=== PATIENT | female | born 1955 | race Caucasian/White ===

== ENCOUNTER → 2018-07-10 | Day surgery (SDC) | payer BC ==
[2018-07-09 11:29] LABS: BASOPHILS # (AUTO) 0.1 (0.0-0.1); BASOPHILS % 0.9 % (0.0-1.0); EOSINOPHILS # (AUTO) 0.3 (0.0-0.4); EOSINOPHILS % 4.5 % (0.0-6.0); HEMATOCRIT 39.2 % (34.2-44.1); HEMOGLOBIN 13.1 g/dL (12.0-16.0); LYMPHOCYTES # (AUTO) 1.5 (1.0-3.2); LYMPHOCYTES % 26.8 % (18.0-39.1); MEAN CORPUSCULAR HEMOGLOBIN 30.6 pg (28-32); MEAN CORPUSCULAR HGB CONC 33.4 g/dL (31-35); MEAN CORPUSCULAR VOLUME 91.6 fL (81-99); MONOCYTES # (AUTO) 0.4 (0.2-0.8); NEUTROPHILS # (AUTO) 3.5 (2.1-6.9); NEUTROPHILS % 60.5 % (38.7-80.0); PLATELET COUNT 171 x10e3/uL (140-360); RED BLOOD COUNT 4.28 x10e6/uL (3.6-5.1); RED CELL DISTRIBUTION WIDTH 13.1 % (11.7-14.4)
[2018-07-09 11:47] LABS: ALANINE AMINOTRANSFERASE 26 IU/L (0-55); ALBUMIN/GLOBULIN RATIO 1.1 (0.8-2.0); ALKALINE PHOSPHATASE 72 IU/L (40-150); ANION GAP 13.7 mmol/L (8-16); BLOOD UREA NITROGEN 12 mg/dL (7-26); BUN/CREATININE RATIO 13 (6-25); CALCIUM 9.7 mg/dL (8.4-10.2); CARBON DIOXIDE 28 mmol/L (22-29); CHLORIDE 103 mmol/L (98-107); CREATININE, SERUM 0.93 mg/dL (0.57-1.11); EST GLOMERULAR FILTRATION RATE > 60 ML/MIN (60-); GLUCOSE 89 mg/dL (74-118); POTASSIUM 4.7 mmol/L (3.5-5.1); SODIUM 140 mmol/L (136-145)
[2018-07-09 12:53] LABS: INR 0.85; PROTHROMBIN TIME 12.1 seconds (11.9-14.5)
[2018-07-09 12:54] LABS: PARTIAL THROMBOPLASTIN TIME 26.9 seconds (23.8-35.5)
[~2018-07-10] MED LIST: ACETAMINOPHEN 1000 MG/100 ML IV ONE; ACIDOPHILUS1 EAC1 PO; ARNICA120 ML PO; BACITRACIN 50,000 UNIT VIAL ONE; BUPIVACAINE 0.25% 30ML SDV INJ ONE; BUPIVACAINE 0.5%/EPI 30 ML SDV INJ ONE; CALCIUM PO; CEFAZOLIN SOD 1 GM/NS 50ML 50 ML IV ONE; CO Q-10400 MG PO; DEXAMETHASONE SOD PHOS INJ 4 MG/ML VIAL ONE; EPINEPHRINE HCL 1:1000 1ML 1 MG/ML AMP ONE; FENTANYL CITRATE/PF 100MCG/2 ML INJ ONE; HYDROCODONE/APAP 10MG-325MG TAB ONE; HYDROMORPHONE 2MG/ML 2 MG/ML ML ONE; LIDOCAINE HCL 1% 30ML-PF VIAL ONE; LIDOCAINE HCL 2% LOCAL INJ 5 ML SDV VIAL INJ ONE; MAGNESIUM OXID400 MG PO; MEPERIDINE HCL INJ 25 MG/ML VIAL ONE; METOCLOPRAMIDE HCL 10 MG/2ML VIAL ONE; MIDAZOLAM HCL 2 MG/2 ML VIAL ONE; OMEGA-31000 MG PO; ONDANSETRON HCL INJ 2MG/ML 2ML 2 MG/ML VIAL ONE; PROMETHAZINE HCL (IM) 25 MG/ML VIAL ONE; PROPOFOL IV EMULSION 10 MG/ML 20 ML VIAL ONE; ROCURONIUM BROMIDE 10 MG/ML 5ML VIAL ONE; SEVOFLURANE INHAL SOLN 250 ML PEN BTL ONE; TURMERIC1 GM PO; VIT B PO; VIT C PO; VIT D PO; VIT E PO; ZINC SULFATE220 M1 PO; [UNRECOGNIZED DRUG - OTHER] PO
--- OUTSIDE RECORDS SUMMARY | 2018-07-10 06:15 | XMS REPORT | Encounter Summary ---
Author Organization Unknown Address [address] [place] [address] Phone [phone] Reason for Visit Medical Complaint Instructions 1. Acute sinusitis amoxicillin 875 mg tablet 2. Pharyngitis rapid flu (A+B) rapid strep group A, throat 3. Acute otitis media 4. Overweight 5. Immunization due Discussion Note Follow up with PCP if symptoms continue or worsen Patient educational handouts: No information available. Plan of Care Reminders Provider Appointments None recorded. Lab Rapid Flu (A+B) 01/26/2018 [facility] Rapid Strep Group a, Throat 01/26/2018 [facility] Referral None recorded. Procedures None recorded. Surgeries None recorded. Imaging None recorded. Medications Name Start Date amoxicillin 875 mg tablet Take 1 tablet every 12 hours by oral route for 10 days. anastrozole 1 mg tablet Medications Administered None recorded. Vitals Height Weight BMI Blood Pressure 5 ft 5 in 189 lbs 31.5 kg/m2 118/74 mm[Hg] Lab Results Date Name Specimen Result Interpretation Description Value Range Status Address Rapid Strep Group a, Throat Result negative [facility]: [address] [place] [address] Swab Location Right tonsillar pillars [facility]: [address] [place] [address] Rapid Flu (A+B) Influenza a negative [facility]: [address] [place] [address] Influenza B negative [facility]: [address] [place] [address] Allergies Code Code System Name Reaction Severity Status Onset NKDA Problems None recorded. Procedures Date Name Performed by Information not available Tonsillectomy Information not available Vaccine List Vaccine Type Tdap 12/30/2011 Social History Smoking Status Smoker, Current Status Unknown Past Encounters 01/26/2018 Acute Sinusitis; Pharyngitis; Acute Otitis Media; Overweight; Immunization Due Mitesh Crow PA-C: [place] [address], Ph. History of Present Illness Spudn-Sdgggsmggi-Wnkhajm Reported By: Patient HPI: Location: head/sinuses, throat. Quality: productive cough, sore throat, colored phlegm, nasal/sinus congestion. Duration: 6days. Severity: moderate. Onset/Timing: gradual. Context: no foreign travel, non-smoker, sick contact. Modifying factors: OTC medication. Associated Symptoms: no shortness of breath, no wheezing, no change in number of pillows needed to sleep at night, no sweats, no significant weight gain, no significant weight loss, no vomiting, no diarrhea, no rash, no nausea, no fever, no muscle aches, no headache, green sputum, yellow sputum, morning cough, sore throat Review of Systems:ROS as noted in the HPI Review of Systems Basic Reported By: Patient Physical Exam Adult Basic Reported By: Patient Constitutional: General Appearance: healthy-appearing, well-nourished, well-developed, overweight. Level of Distress: NAD. Ambulation: ambulating normally Psychiatric: Mental Status: active and alert. Orientation: to time, to place, to person Eyes: Lids and Conjunctivae: non-injected, no discharge, no pallor. EOM: EOMI. Lens: clear. Sclerae: non-icteric. Vision: acuity grossly intact Aiz-Gtap-Ywmlj-Throat: Ears: no lesions on external ear, no outer ear tenderness, EACs clear, TM erythematous, TM bulging, middle ear fluid. Hearing: no hearing loss. Nose: no lesions on external nose, no septal deviation, nasal passages clear, nares non-patent, sinus tenderness, nasal discharge, nasal discharge--purulent, post nasal drip. Lips, Teeth, and Gums: no mouth or lip ulcers, no bleeding gums, normal dentition. Oropharynx: moist mucous membranes, no erythema, no exudates, tonsils not enlarged Neck: Neck: supple, trachea midline, no masses, FROM. Lymph Nodes: no cervical LAD. Thyroid: no enlargement, non-tender, no nodules Lungs: Respiratory effort: no dyspnea, no tachypnea, no use of accessory muscles, no intercostal retractions. Auscultation: breath sounds normal Cardiovascular: Heart Auscultation: RRR, no murmurs Musculoskeletal:: Joints, Bones, and Muscles: normal movement of all extremities Neurologic: Gait and Station: normal gait, normal station. Cranial Nerves: grossly intact. Sensation: grossly intact Skin: Inspection and palpation: no rash, no lesions Back: Thoracolumbar Appearance: normal curvature
--- OUTSIDE RECORDS SUMMARY | 2018-07-10 06:15 | XMS REPORT | Encounter Summary ---
Author Organization Unknown Address [address] [place] [address] Phone [phone] Reason for Visit Medical Complaint Instructions 1. [...] Group a, Throat Result negative [facility]: [address] [place] [address] Swab Location Right tonsillar pillars [facility]: [address] [place] [address] Rapid Flu (A+B) Influenza a negative [facility]: [address] [place] [address] Influenza B negative [facility]: [address] [place] [address] Allergies Code Code System Name Reaction Severity Status Onset NKDA Problems None recorded. Procedures Date Name Performed by Information not available Tonsillectomy Information not available Vaccine List Vaccine Type Tdap 12/30/2011 Social History Smoking Status Smoker, Current Status Unknown Past Encounters 01/26/2018 Acute Sinusitis; Pharyngitis; Acute Otitis Media; Overweight; Immunization Due Mitesh Crow PA-C: [place] [address], Ph. History of Present Illness Vcbui-Hqtxntbgat-Oifafnh Reported By: Patient HPI: Location: head/sinuses, throat. [...] clear. Sclerae: non-icteric. Vision: acuity grossly intact Zmn-Lozj-Gxmoe-Throat: Ears: no lesions on external ear, no [...]
--- OUTSIDE RECORDS SUMMARY | 2018-07-10 06:15 | XMS REPORT | Encounter Summary ---
Author Organization Unknown Address [address] [place] [address] Phone [phone] Reason for Visit Medical Complaint Instructions 1. Acute urinary tract infection urinalysis, dipstick culture, urine Bactrim DS 800 mg-160 mg tablet Discussion Note Pt is aaox3 and in NAD; verbalizes understanding of all instructions and has no further questions at this time Patient educational handouts: No information available. Plan of Care Patient Instructions Urinary Tract Infection Your symptoms and/or tests indicate a Urinary Tract Infection, a bacterial infection of the bladder. Take antibiotics only as prescribed. Once starting an antibiotic course, finish the entire course unless otherwise indicated by a medical professional. If you develop a reaction to the medication, including rash, hives, swelling of throat, difficulty breathing, stop immediately and seek medical care. Take a daily probiotic or eat a daily yogurt Drink plenty of non-caffeinated drinks. To prevent Urinary Tract Infections, wipe front to back if you are female, urinate after intercourse if you are active, drink plenty of fluids, urinate after bathing or swimming, do not keep wet clothing on for extended periods of time, and urinate when you have the urge (do not hold urine). If a urine culture was collected, you will receive a phone call with positive results and results without portal access. Normal results will be published to the portal at [employer] If symptoms continue or do not improve, follow up with your primary care provider. Seek care immediately with your primary care provider, an urgent care, or an emergency room if symptoms worsen or you develop fever above 101, vomiting, back pain, blood in the urine, abdominal pain, dizziness, difficulty or inability to urinate. If you have any need to contact [facility], including questions or concerns, please contact or Reminders Provider Appointments None recorded. Lab Urinalysis, Dipstick 06/13/2018 [facility] Culture, Urine 06/13/2018 [facility] Referral None recorded. Procedures None recorded. Surgeries None recorded. Imaging None recorded. Medications Name Start Date anastrozole 1 mg tablet Bactrim DS 800 mg-160 mg tablet Take 1 tablet every 12 hours by oral route for 7 days. Medications Administered None recorded. Vitals Height Weight BMI Blood Pressure 5 ft 5 in 208 lbs 34.6 kg/m2 108/62 mm[Hg] Lab Results Date Name Specimen Result Interpretation Description Value Range Status Address 06/13/2018 Urinalysis, Dipstick Color : Straw [facility]: [address] [place] [address] Clarity : Cloudy [facility]: [address] [place] [address] Leukocytes : Large [facility]: [address] [place] [address] Nitrites : Negative [facility]: [address] [place] [address] Urobilinogen : 1 [facility]: [address] [place] [address] Protein : 100 [facility]: [address] [place] [address] Ph : 5.0 [facility]: [address] [place] [address] Blood : Negative [facility]: [address] [place] [address] Specific [place] : 1.020 [facility]: [address] [place] [address] Ketones : Negative [facility]: [address] [place] [address] Bilirubin : Negative [facility]: [address] [place] [address] Glucose Negative [facility]: [address] [place] [address] Comments : taken otc urinex [facility]: [address] [place] [address] Allergies Code Code System Name Reaction Severity Status Onset NKDA Problems None recorded. Procedures Date Name Performed by Information not available Tonsillectomy Information not available Vaccine List Vaccine Type Tdap 12/30/2011 Social History Smoking Status Smoker, Current Status Unknown Past Encounters 06/13/2018 Acute Urinary Tract Infection [facility]-C: [address] [address], Ph. History of Present Illness Iykntj-JSG-Hbptwic Reported By: Patient HPI: Location: urethra. Quality: pressure, burning. Severity: worsening. Duration: started 5 days. Context: no known exposure to STD, no prior history of STDs. Modifying factors nothing gives relief; uricalm max. Associated Symptoms: no fever/chills, no flank pain, no jaundice, no blood in the urine, no pain during urination, no vaginal discharge, no blisters on genitals, no rash on genitals, no muscle aches, no headache, burning sensation during urination, urgency, urinary frequency, feeling of incomplete emptying of bladder Review of Systems:ROS as noted in the HPI Review of Systems Basic Reported By: Patient Physical Exam Adult Basic, Adult Female Complete Reported By: Patient Constitutional: General Appearance: healthy-appearing, well-nourished, well-developed. Level of Distress: NAD. Ambulation: ambulating normally Psychiatric: Mental Status: active and alert Neck: Neck: supple. Lymph Nodes: no cervical LAD, no supraclavicular LAD Lungs: Respiratory effort: no dyspnea, no tachypnea, no use of accessory muscles, no intercostal retractions. Auscultation: breath sounds normal Cardiovascular: Heart Auscultation: RRR, no murmurs Musculoskeletal:: Motor Strength and Tone: normal motor strength, normal tone Skin: Inspection and palpation: no rash, no lesions Abdomen: Bowel Sounds: normal. Inspection and Palpation: soft, no rebound tenderness, no masses, no CVA tenderness, LLQ tenderness, RLQ tenderness
--- OUTSIDE RECORDS SUMMARY | 2018-07-10 06:15 | XMS REPORT | Continuity of Care Document ---
Author Author [facility] Interface Address Unknown Phone Unavailable Problems Problem Status Onset Date Classification Date Reported Comments Source Acute urinary tract infection 06/13/2018 Diagnosis 06/13/2018 [facility] Immunization due 01/26/2018 Diagnosis 01/26/2018 [facility] Overweight 01/26/2018 Diagnosis 01/26/2018 [facility] Acute otitis media 01/26/2018 Diagnosis 01/26/2018 [facility] Pharyngitis 01/26/2018 Diagnosis 01/26/2018 [facility] Acute sinusitis 01/26/2018 Diagnosis 01/26/2018 [facility] Medications Medication Details Route Status Patient Instructions Ordering Provider Order Date Source Amoxicillin 875 MG Oral Tablet amoxicillin 875 mg tablet Take 1 tablet every 12 hours by oral route for 10 days. Active [facility] anastrozole 1 MG Oral Tablet anastrozole 1 mg tablet Active [facility] Sulfamethoxazole 800 MG / Trimethoprim 160 MG Oral Tablet [Bactrim] Bactrim DS 800 mg-160 mg tablet Take 1 tablet every 12 hours by oral route for 7 days. Active [facility] Allergies, Adverse Reactions, Alerts Substance Category Reaction Severity Reaction type Status Date Reported Comments Source Immunizations Immunization Date Given Site Status Last Updated Comments Source Tdap 12/30/2011 completed [facility] Results Order Name Results Value Reference Range Date Interpretation Comments Source Urinalysis macro (dipstick) panel - Urine COLOR : Straw 06/13/2018 [facility] Urinalysis macro (dipstick) panel - Urine CLARITY : Cloudy 06/13/2018 [facility] Urinalysis macro (dipstick) panel - Urine LEUKOCYTES : Large 06/13/2018 [facility] Urinalysis macro (dipstick) panel - Urine NITRITES : Negative 06/13/2018 [facility] Urinalysis macro (dipstick) panel - Urine UROBILINOGEN : 1 06/13/2018 [facility] Urinalysis macro (dipstick) panel - Urine PROTEIN : 100 06/13/2018 [facility] Urinalysis macro (dipstick) panel - Urine pH : 5.0 06/13/2018 [facility] Urinalysis macro (dipstick) panel - Urine BLOOD : Negative 06/13/2018 [facility] Urinalysis macro (dipstick) panel - Urine SPECIFIC GRAVITY : 1.020 06/13/2018 [facility] Urinalysis macro (dipstick) panel - Urine KETONES : Negative 06/13/2018 [facility] Urinalysis macro (dipstick) panel - Urine BILIRUBIN : Negative 06/13/2018 [facility] Urinalysis macro (dipstick) panel - Urine GLUCOSE Negative 06/13/2018 [facility] Urinalysis macro (dipstick) panel - Urine COMMENTS : taken otc urinex 06/13/2018 [facility] RESULT negative 01/26/2018 [facility] SWAB LOCATION Right tonsillar pillars 01/26/2018 [facility] Influenza A negative 01/26/2018 [facility] Influenza B negative 01/26/2018 [facility] Vital Signs Vital Sign Value Date Comments Source Diastolic (mm Hg) 62 06/13/2018 [facility] Height 65 06/13/2018 [facility] Systolic (mm Hg) 108 06/13/2018 [facility] Weight 208 06/13/2018 [facility] Diastolic (mm Hg) 74 01/26/2018 [facility] Height 65 01/26/2018 [facility] Systolic (mm Hg) 118 01/26/2018 [facility] Weight 189 01/26/2018 [facility] Encounters Location Location Details Encounter Type Encounter Number Reason For Visit Attending Provider ADM Date DC Date Status Source [place] - [facility] - [id number] MITRA MunozC: [address] [place] [address], Ph. [id number] Sallye Scogin 01/26/2018 [facility] [place] - [facility] - [id number] MITRA MunozC: [address] [place] [address], Ph. [id number] Sallye Scogin 01/26/2018 [facility] [place] - [facility] - [id number] BARI Brewster-C: [address], [place] [address], Ph. [id number] Susanne Castro 06/13/2018 [facility] Procedures Procedure Code Date Perfomer Comments Source [facility] Tonsillectomy [facility]
--- NOTE | 2018-07-10 07:10 | NUR ---
SPIRITUAL CARE - Pre-Surgery Assessment: Pt in bed. Pt's at bedside. Pt reported supportive attention from family and friends. Intervention: I provided pastoral presence, hospitality, and sympathetic listening. I acquainted pt with availability of credit risk officer while hospitalized. Outcome: Pt expressed appreciation for visit. No need for follow up indicated at this time. RODERICK Vegalain Spiritual Care Department O: [phone] Pager: [phone] ([phone] calling from)
[2018-07-10 17:30] VITALS: BP 137/90
--- NOTE | 2018-08-15 20:59 | Operative Report ---
DATE OF PROCEDURE: 07/10/2018 SURGEON: Tracy Rushing MD PREOPERATIVE DIAGNOSES: 1. History of left breast cancer. 2. Acquired deformity of left breast. 3. Right breast ptosis. 4. Excess lower abdominal skin and diastasis recti. POSTOPERATIVE DIAGNOSES: 1. History of left breast cancer. 2. Acquired deformity of left breast. 3. Right breast ptosis. 4. Excess lower abdominal skin and diastasis recti. PROCEDURES PERFORMED: 1. Left breast reconstruction with fat transfer to the left breast, 180 mL of fat injected into the left breast. 2. Right breast mastopexy and fat transfer, 80 mL of fat injected into the right breast. 3. Abdominoplasty. ANESTHESIA: General endotracheal. INDICATIONS FOR SURGERY: This is a [id number]-female, who several years ago was diagnosed with the left breast cancer. The patient had left breast segmental mastectomy and radiation and is currently presenting with acquired deformity of the left breast and right breast ptosis. The patient desires left breast reconstruction with fat transfer to the left breast and right breast mastopexy with the small fat transfer to the right breast. She also complains of excess lower abdominal skin and diastasis recti and desires abdominoplasty. The patient has selected to have the fat be harvested from her bilateral flanks. Risks, alternatives, and possible complications of the above procedure were explained to the patient. These include, but are not limited to bleeding, infection, scarring, nipple or skin flap necrosis, breast asymmetry, wound dehiscence, loss of nipple sensation, umbilical or skin flap necrosis, seroma formation, pulmonary embolism, deep vein thrombosis, skin irregularity, lack of results, unsatisfactory aesthetic results, and possible need for further surgery. The patient had an opportunity to ask questions and all of her questions answered and agreed to proceed with proposed procedure. PROCEDURE IN DETAIL: The patient was marked in the preoperative holding area. She was then taken to the operating room and placed supine on the operating table. After adequate general anesthesia, Clarke was placed and the patient's bilateral breasts, abdomen, and bilateral flanks were prepped and draped in the usual surgical fashion. Attention was then turned to the patient's bilateral flank areas. This was area for the donor site for the fat transfer. Tumescent fluid was injected in each flank area, approximately 800 mL. After adequate time was given for the tumescent to act, suction-assisted lipectomy was performed on the bilateral flanks as part of the harvesting of the fat. Approximately 1000 mL were harvested. Approximately 500 mL of fat from each flank. The harvested fat was then purified using the Propancg[employer] fat purification system. Approximately 260 mL of fat were purified. While the fat was being purified, Dr. Rushing turned her attention to the right breast. The right breast was marked for right breast mastopexy. The nipple areolar complex was marked with [employer] cutter at 42 mm of diameter. The excess skin was then de-epithelialized with the help of the Bovie and 15C blade. The superior pedicle was then developed from the de-epithelialized skin with the help of the Bovie. The pedicle was sutured to the chest wall with the 2-0 Vicryl suture. The nipple areola complex was then elevated and sutured to the new superior location with 3-0 Vicryl suture. The medial and lateral skin flaps were advanced to each other and sutured to each other with interrupted 3-0 Vicryl suture. The nipple areola complex was sutured to the new superior location with the interrupted 4-0 Vicryl sutures. The running subcuticular 3-0 PDO close suture was then run along the vertical limb and around the nipple areola complex. Attention was then turned to the patient's left breast. The largest defect was on the inferolateral portion of the left breast. The purified fat was then injected into the left breast with 16-gauge blunt-tip cannula. Approximately 180 mL of purified fat was injected into the left breast. The remaining 80 mL of purified fat was injected into the right breast mostly in the superior and medial portion of the breast in order to achieve symmetry in between two breasts. After completion of the bilateral breasts reconstruction, attention was turned to the patient's lower abdomen. An incision was made in the suprapubic area with previously marked with #10 blade. Tissue dissected down to the abdominal wall fascia with the help of the Bovie. The lower abdominal skin flap was elevated with the help of the Bovie. Once the umbilicus was reached, an incision was made around the umbilicus with #15 blade. The tissue was dissected carefully ensuring that the blood supply to the umbilicus remains intact. The abdominal skin flap was then elevated up to the xiphoid with the help of the Bovie. The abdominal wall fascia was then plicated with the looped 0 nylon suture from the xiphoid to the umbilicus and a second suture from umbilicus to the pubic area. A second layer of interrupted 0-Ethibond sutures were placed along the abdominal rectus plication in interrupted vuaciy-pd-fvgso fashion. After the completion of the plication, the abdominal wall fascia was injected with 0.5% Marcaine with epinephrine approximately 30 mL. The patient was then placed in the flexed position and lower abdominal skin flap was advanced. The area of the new umbilicus was marked and an inverted U-incision was made with the help of #15 blade and with the Bovie. The umbilicus was sutured in its new superior location with interrupted 4-0 Vicryl sutures and a running subcuticular 4-0 PDS suture. The excess lower abdominal skin was then marked for resection and excision was performed with the help of #10 blade and with the Bovie. Two #10 flat JESUSITA's were placed, one on each side of the abdomen and sutured into the pubic area with the 2-0 nylon suture. The lower abdominal incision was then closed with interrupted 2-0 Vicryl sutures in Juarez's fascia, Insorb stapler in subcutaneous tissue in a running subcuticular 3-0 PDS suture. At the end of the case, both the nipples and the umbilicus as well as all abdominal and breast skin flaps appeared available. Steri-Strips were placed around the nipple areola complex on the right breast. Both breasts were covered with the Xeroform and ABD pads. The lower abdominal incisions were covered with Xeroform and ABD pads as well. Surgical bra and a compression garment were placed on the patient. The Clarke was discontinued before the end of the case. The patient tolerated the procedure well. There were no immediate complications. The needle and instrument count was correct at the end of the case and she was transferred, extubated to the recovery room. MD RAUDEL Phillips/MODCatherine /[id number] MARTHA
== END | disposition home or self-care (01) ==
LOC: OR 06:11
PROVIDERS: ATTEND Plastic Surgery
DX: N64.89 Other specified disorders of breast (principal); Z85.3 Personal history of malignant neoplasm of breast; N64.81 Ptosis of breast; M62.08 Separation of muscle (nontraumatic), other site; L98.7 Excessive and redundant skin and subcutaneous tissue; Z01.810 Encounter for preprocedural cardiovascular examination; Z01.812 Encounter for preprocedural laboratory examination; Z92.3 Personal history of irradiation; Z87.891 Personal history of nicotine dependence
CPT/HCPCS: 36415; 80053; 85025; 85610; 85730; 88305; 93005; J0171; J0690; J1100; J2001; J2175; J2250; J2405; J2550; J2765